=== PATIENT | male | born 1995 | race African-American/Black ===

== ENCOUNTER 2017-05-01 17:32 | Emergency (ER) | payer OTHER ==
[~2017-05-01] VITALS: Ht 180.3 cm; Wt 85.3 kg
--- NOTE | 2017-05-01 17:47 | ER Report ---
History and Physical Time Seen By MD: 17:35 Hx. of Stated Complaint: Right pinky pain, dislocation. HPI/ROS CHIEF COMPLAINT: Right 5th finger injury HISTORY OF PRESENT ILLNESS: She is a 22-year-old male who presents the ED with complaint of right 5th finger injury that occurred about 20 minutes ago. He states that he was at football practice and a football hit his finger and noticed immediate pain and a deformity to the finger. He has not taken any medication for this. He states that he is able to feel his entire finger but does feel weird. He is unable to move his right 5th finger normally. REVIEW OF SYSTEMS: Constitutional: No fever, no chills. Cardiovascular: No chest pain, no palpitations. Respiratory: No cough, no shortness of breath Musculoskeletal: Right 5th finger injury Skin: No rashes. Allergies: Coded Allergies: No Known Drug Allergies (Unverified , 05/01/17) Reviewed Nurses Notes: Yes Old Medical Records Reviewed: Yes Constitutional Vital Sign - Last 24 Hours 05/01/17 17:38 Temp 98.1 Pulse 68 Resp 18 B/P (MAP) 146/89 Pulse Ox 97 O2 Delivery Room Air Physical Exam General Appearance: The patient is alert, has no immediate need for airway protection and no current signs of toxicity. Patient appears to be no acute distress. Respiratory: Chest is non tender, lungs are clear to auscultation. Cardiac: regular rate and rhythm Musculoskeletal: Neck: Neck is supple and non tender. There is obvious deformity of the right 5th finger. There appears to be some bone sticking out of a laceration of the middle phalanx area. He has deviation medially. Radial pulse 2+ with normal capillary refill. His has no range of motion of the right 5th finger. Skin: See above muscle exam Medical Decision Making Data Points Result Diagram: 05/01/17 1818 05/01/17 1818 Laboratory Hematology Test 05/01/17 18:18 05/01/17 18:35 Red Blood Count 5.23 M/uL (4.00-5.60) Mean Corpuscular Volume 86.0 fL (80.0-96.0) Mean Corpuscular Hemoglobin 29.1 pg (26.0-33.0) Mean Corpuscular Hemoglobin Concent 33.9 g/dL (32.0-36.0) Red Cell Distribution Width 13.6 % (11.5-14.5) Mean Platelet Volume 8.6 fL (7.2-11.1) Neutrophils (%) (Auto) 47.9 % (39.4-72.5) Lymphocytes (%) (Auto) 37.1 % (17.6-49.6) Monocytes (%) (Auto) 11.2 % (4.1-12.4) Eosinophils (%) (Auto) 2.7 % (0.4-6.7) Basophils (%) (Auto) 1.1 % (0.3-1.4) Nucleated RBC Relative Count (auto) 0.1 /100WBC Neutrophils # (Auto) 2.2 K/uL (2.0-7.4) Lymphocytes # (Auto) 1.7 K/uL (1.3-3.6) Monocytes # (Auto) 0.5 K/uL (0.3-1.0) Eosinophils # (Auto) 0.1 K/uL (0.0-0.5) Basophils # (Auto) 0.1 K/uL (0.0-0.1) Nucleated RBC Absolute Count (auto) 0.00 K/uL Sodium Level 144 mmol/L (137-145) Potassium Level 3.5 mmol/L (3.5-5.0) Chloride Level 106 mmol/L (98-107) Carbon Dioxide Level 25 mmol/L (22-30) Blood Urea Nitrogen 16 mg/dl (9-21) Creatinine 1.50 mg/dl (0.66-1.25) Glomerular Filtration Rate Calc 59.7 Random Glucose 84 mg/dl (75-110) Calcium Level 9.3 mg/dl (8.4-10.2) Chemistry Test 05/01/17 18:18 05/01/17 18:35 White Blood Count 4.5 k/uL (4.5-11.0) Red Blood Count 5.23 M/uL (4.00-5.60) Hemoglobin 15.3 g/dL (14.0-18.0) Hematocrit 45.0 % (42.0-52.0) Mean Corpuscular Volume 86.0 fL (80.0-96.0) Mean Corpuscular Hemoglobin 29.1 pg (26.0-33.0) Mean Corpuscular Hemoglobin Concent 33.9 g/dL (32.0-36.0) Red Cell Distribution Width 13.6 % (11.5-14.5) Platelet Count 316 K/uL (150-450) Mean Platelet Volume 8.6 fL (7.2-11.1) Neutrophils (%) (Auto) 47.9 % (39.4-72.5) Lymphocytes (%) (Auto) 37.1 % (17.6-49.6) Monocytes (%) (Auto) 11.2 % (4.1-12.4) Eosinophils (%) (Auto) 2.7 % (0.4-6.7) Basophils (%) (Auto) 1.1 % (0.3-1.4) Nucleated RBC Relative Count (auto) 0.1 /100WBC Neutrophils # (Auto) 2.2 K/uL (2.0-7.4) Lymphocytes # (Auto) 1.7 K/uL (1.3-3.6) Monocytes # (Auto) 0.5 K/uL (0.3-1.0) Eosinophils # (Auto) 0.1 K/uL (0.0-0.5) Basophils # (Auto) 0.1 K/uL (0.0-0.1) Nucleated RBC Absolute Count (auto) 0.00 K/uL Glomerular Filtration Rate Calc 59.7 Calcium Level 9.3 mg/dl (8.4-10.2) Coagulation Test 05/01/17 18:35 EKG/Imaging Imaging Right 5th Finger Xrays: Appears the patient does have a fracture of the right middle phalanx and has open dislocation of the PIP. ED Course/Re-evaluation ED Course Will obtain right 5th finger x-ray 05/01/2017 6:22:30 pm : He states that Dr. Smith, orthopedist, is already on his way to the ER to evaluate the patient. Patient given 2 g IV Ancef and Tdap. 05/01/2017 6:56:16 pm - Dr. Smith, orthopedist, will accept patient under his care. Decision to Disposition Date: May 01, 2017 Decision to Disposition Time: 18:58 Depart Departure Latest Vital Signs Vital Signs Date Time Temp Pulse Resp B/P (MAP) Pulse Ox O2 Delivery O2 Flow Rate FiO2 05/01/17 17:38 98.1 68 18 146/89 97 Room Air Impression: Primary Impression: Dislocation of finger, interphalangeal joint, right, open Condition: Improved Disposition: Admitted from ER PROPERTY [employer]LLER/PA consult with MD: Examined Patient MD Consult Note: Dr. Smith, Orthopedics Problem Qualifiers Primary Impression: Dislocation of finger, interphalangeal joint, right, open Encounter type: initial encounter Qualified Codes: S63.279A - Dislocation of unspecified interphalangeal joint of unspecified finger, initial encounter; S61.209A - Unspecified open wound of unspecified finger without damage to nail, initial encounter DAVID CARRASCO PA-C May 01, 2017 17:47
[2017-05-01] MEDS ORDERED: ceFAZolin(*) 2GM/D5W 50ML 50 ML IVPB ONE (18:05)
[2017-05-01] MEDS ORDERED: DIPHTH/TETANUS/ACEL. PERTUSSIS IM ONLY ONE (18:05)
--- NOTE | 2017-05-01 18:14 | RADIOLOGY IMAGING REPORT ---
FACILITY: [facility] PATIENT NAME: Calos Russ : 1995 MR: [id number] V: [id number] EXAM DATE: ORDERING PHYSICIAN: DAVID CARRASCO TECHNOLOGIST: Location: [facility] - [place] Patient: Calos Russ : 1995 Visit/Account:[id number] Date of Sevice: 05/01/2017 EXAMINATION: Three views of the right fifth finger. HISTORY: Right fifth finger injury, laceration, dislocation COMPARISON: None. FINDINGS: Dorsal dislocation at the PIP joint of the right fifth finger. The base of the middle phalanx is disp laced posterior to the neck of the proximal phalanx. No visualized fracture. Surrounding soft tissue swelling and laceration. There appears to be exposed bone at the head of the proximal phalanx. No radiopaque foreign body. IMPRESSION: 1. Posterior dislocation at the PIP joint of the right fifth finger. No visualized fracture. 2. Surrounding soft tissue swelling and laceration, with exposed bone at the head of the proximal pha lanx. Report Dictated By: Tavon Le MD at 05/01/2017 6:06 PM Report E-Signed By: Tavon Le MD at 05/01/2017 6:11 PM WSN:[id number]
[2017-05-01 18:32] LABS: PLATELET COUNT, AUTOMATED 316 K/uL (150-450)
[2017-05-01] MEDS ORDERED: MORPHINE 2 MG/ML SYR IVP ONE (18:45)
[2017-05-01 18:55] LABS: INR 1.12
[2017-05-01] MEDS ORDERED: ROPIVACAINE 0.2% 20 ML VIAL ONE ×2 (19:12→19:31)
[2017-05-01 19:20] VITALS: BP 124/88
[2017-05-01] MEDS ORDERED: LIDOCAINE 2% IV 100 MG/5ML SYR ONE (19:32)
[2017-05-01 20:18] VITALS: BP 130/83
[2017-05-01 20:30] VITALS: BP 128/78
[2017-05-01] MEDS ORDERED: HYDR-4309 PO (20:33)
[2017-05-01] MEDS ORDERED: CEPH500T7 PO (20:34)
--- NOTE | 2017-05-02 16:47 | HISTORY AND PHYSICAL ---
DATE OF ADMISSION: May 01, 2017 Patient was seen in the emergency department at [facility]. PREOPERATIVE DIAGNOSIS Open dislocation of the fifth finger. HISTORY OF PRESENT ILLNESS Patient is a 22-year-old male who presented in the emergency department with an open dislocation of his right fifth finger on the PIP joint. He was playing in football practice and caught a ball on the side of the finger, and it tore it apart and the bone was exposed, associated with this incident. Therefore they took him emergently to the emergency department. They contacted myself, and then we got him set up to do an irrigation and debridement here in the hospital. PAST MEDICAL HISTORY Otherwise unremarkable. The patient states he is otherwise healthy with no major medical problems. ALLERGIES No known drug allergies. MEDICATIONS None. SOCIAL HISTORY The patient is a student at the [employer]. He does not report any drinking or illicit drug use, and denies any major problems. REVIEW OF SYSTEMS Shows that the patient otherwise reports all other review of systems negative, except for the orthopedic review of systems for the fifth finger. PHYSICAL EXAMINATION GENERAL: The patient is sitting in the exam room in no acute distress, comfortable and cooperative, answering all questions appropriately. HEENT: Normocephalic. Extraocular movements intact. NECK: Supple. Trachea is midline. CHEST: Rises and falls symmetrically. He has unlabored breathing or audible wheezing, and is able to follow and understand verbal commands. FOCUSED EXAM: The right hand shows that he does have a fifth finger that has an open dislocation with the bone protruding through the volar radial site. There are no other signs or issues associated with this. He can feel light touch sensation on the tip of the finger, but it is a little bit diminished as would be expected. His had is otherwise grossly neurovascularly intact, other than that fifth finger and he has no other signs of abnormalities. His contralateral extremity is otherwise unremarkable. ASSESSMENT AND PLAN This patient is a 22-year-old male with an open proximal interphalangeal dislocation of his fifth finger. At this point I think it is reasonable to take him to the operating room and I will irrigate and debride this area, and do a closed reduction associated with it, and then also explore the neurovascular bundle on that side, and then do a probable ligament repair. We went over the risks and benefits associated with this and her informed consent was obtained at today's visit prior to the procedure. VANESSA
--- NOTE | 2017-05-02 21:58 | OPERATIVE REPORT 1 ---
EVENT DATE: May 01, 2017 SURGEON: Drew Smith MD ANESTHESIOLOGIST: None. ANESTHESIA: Local. FUNERAL ATTENDANT: None. PREOPERATIVE DIAGNOSIS Right fifth finger open proximal interphalangeal dislocation. POSTOPERATIVE DIAGNOSIS Right fifth finger open proximal interphalangeal dislocation with ligamentous tear with the palmar plate and the radial collateral ligament. PROCEDURE PERFORMED Open reduction, irrigation and debridement, ligament repair, volar plate repair of the right fifth finger proximal interphalangeal joint, and exploration of the nerve. FINDINGS The patient had an open dislocation and tearing of the volar and radial side of the joint capsule, which was amenable for repair after we got it reduced. It was concentrically reduced by the C-arm images. ESTIMATED BLOOD LOSS Minimal. DRAINS None. COMPLICATIONS None. IMPLANTS USED None. SPECIMENS None. TOURNI-COT TIME About 24 minutes. INDICATIONS AND HISTORY This patient is a 22-year-old male who was at football practice this afternoon when he tried to catch a pass and got his finger caught, and he sustained an open dislocation associated with it. He presented to the emergency department where we got him set up to do an open reduction and ligament repair today, May 01, 2017. The risks and benefits were discussed with the patient, and informed consent was obtained. He understood he may have problems long-term associated with the finger and that there was a chance for infection. DESCRIPTION OF PROCEDURE The patient was into the operating room. He and the procedure were both verified. He was placed supine on the operating table and given a 2% ropivacaine block into the base of the finger. Once this was allowed to set up , the arm was then prepped and draped in the usual fashion. A timeout was observed verifying the correct patient and procedure. The open bone was then irrigated with copious amounts of saline. I was able to wash a significant amount of saline over the top of the bone and also through the wound itself and opened it up in order to gain access in there. There were no gross contaminants within the wound itself and no signs of problems or issues associated with it, and so therefore I was able to wash it off really good. There were no signs of problems associated with it. I then was able to extend the laceration a small amount in a Rimma type fashion as it was kind of in a diagonal fashion before, and then I was able to reduce the condyle without any major difficulties, slipping it under the flexor tendons and then through the buttonholed area through the radial side. Once I was able to do this, I was then able to concentrically reduce it and hold it in place. I then was able to irrigate with copious amounts of saline again. I was then able to look at all the flexor tendons involved. The two sides of the flexor digitorum profundus and the flexor digitorum superficialis were both in decent position, intact, and did not necessitate repair. I then also explored the neurovascular bundle, and while stretched out and irritated, there were no signs of complete tearing of this, and so it was left in place. I then irrigated again and then closed the volar plate as well as the radial collateral ligament with a 3-0 Vicryl. Once I was able to tack these down with a stitch, there were no signs of problems associated with it, and so therefore we then irrigated again and then closed the skin with a 4-0 nylon in an interrupted independent suture fashion. The patient was awaken enough then to flex and extend his finger. There were no signs of catching or locking. X-ray images were taken showing the concentric reduction of the finger, and so therefore the wound was then dressed with Xeroform gauze, 4 x 4's, and a soft dressing. An AlumaFoam splint was placed over the backside of the finger and wrapped in an Femi wrap. He will be discharged tonight to home as an outpatient. I keep him on the Keflex and then also gave him a pain script. VANESSA
== END 2017-05-01 18:59 | disposition other institution (70) ==
LOC: ER 17:36 → OR 18:55
DX: S63.279A Dislocation of unspecified interphalangeal joint of unspecified finger, initial encounter (principal); W21.01XA Struck by football, initial encounter; Y93.61 Activity, american tackle football
CPT/HCPCS: 11012; 26785; 73140; 85025; 85610; 85730; 90471; 90715; 96365; 96375; 99285; J2270; J2795; 82310; 82374; 82435; 82565; 82947; 84132; 84295; 84520; J0690; J2001

== ENCOUNTER → 2018-08-17 | Outpatient (CLI) | payer BC, OTHER ==
[~2018-08-17] MED LIST: CEPH500T7 PO; HYDR-653 PO
--- NOTE | 2018-08-17 13:31 | RADIOLOGY IMAGING REPORT ---
FACILITY: [facility] - [place] PATIENT NAME: Calos Russ : 1995 MR: [id number] V: [id number] EXAM DATE: ORDERING PHYSICIAN: DAPHNIE PENA TECHNOLOGIST: Location: [facility] - [place] Patient: Calos Russ : 1995 Visit/Account:[id number] Date of Sevice: 08/17/2018 TESTICULAR HISTORY: Pain and swelling of left epididymis COMPARISON: None. FINDINGS: Testes: The right testicle measures 4.5 x 2.2 x 3.1 cm. The left testicle measures 3.9 x 2 x 2.5 cm Symmetric and unremarkable blood flow documented by color and Duplex Doppler ultrasound. Epididymides: The head epididymis on the right measures 1.08 cm. The head epididymis on the left katelyn sures 1.1 cm Blood flow is unremarkable in each epididymis by color Doppler ultrasound. Hydrocele: Small on the right Varicocele: Bilateral IMPRESSION: There small bilateral varicoceles and a small right hydrocele The head epididymis on the left appears unremarkable relative to the right Report Dictated By: Layla Ly MD at 08/17/2018 1:22 PM Report E-Signed By: Layla Ly MD at 08/17/2018 1:26 PM WSN:[id number]
== END ==
LOC: US 01:34
PROVIDERS: ATTEND Family Medicine
DX: N43.2 Other hydrocele (principal)
CPT/HCPCS: 76870